=== PATIENT | female | born 1990 | race Caucasian/White ===

== ENCOUNTER 2019-07-01 19:15 | Outpatient (REF) | payer SELFPAY ==
[2019-07-01 20:27] LABS: Hepatitis B Surface AB. 3.5 (0-8.5)
[2019-07-05 11:39] LABS: Rubella IgG 8.84 1 (0.0-9.0)
== END 2019-07-01 19:16 | disposition home or self-care (01) ==
LOC: LAB 19:15
PROVIDERS: Family Provider Nurse Practitioner Family; PCP Nurse Practitioner Family
DX: Z23 Encounter for immunization (principal)
CPT/HCPCS: 86706; 86735; 86762; 86765; 86787

== ENCOUNTER → 2019-10-20 10:59 | Outpatient (BNVA) | payer MEDICAID, SELFPAY | PROVIDERS: Family Provider Nurse Practitioner Family; PCP Nurse Practitioner Family; Visit Provider Obstetrics & Gynecology | DX: Z34.90 Encounter for supervision of normal pregnancy, unspecified, unspecified trimester (principal) | CPT/HCPCS: 81025 ==

== ENCOUNTER → 2019-11-08 14:57 | Outpatient (BNVA) | payer MEDICAID, SELFPAY | PROVIDERS: Family Provider Nurse Practitioner Family; PCP Nurse Practitioner Family; Visit Provider Obstetrics & Gynecology | DX: Z34.01 Encounter for supervision of normal first pregnancy, first trimester (principal); Z12.4 Encounter for screening for malignant neoplasm of cervix | CPT/HCPCS: 80053; 80307; 84315; 85027; 86592; 86762; 86803; 86850; 86900; 87340; 87491; 87591; 87806; 88175 ==

== ENCOUNTER → 2020-03-01 13:02 | Outpatient (BNVA) | payer MEDICAID, SELFPAY | PROVIDERS: Family Provider Nurse Practitioner Family; PCP Nurse Practitioner Family; Visit Provider Obstetrics & Gynecology | DX: Z34.01 Encounter for supervision of normal first pregnancy, first trimester (principal) | CPT/HCPCS: 82950; 84315; 85027 ==

== ENCOUNTER → 2020-03-06 08:29 | Outpatient (BNVA) | payer MEDICAID, SELFPAY | PROVIDERS: Family Provider Nurse Practitioner Family; PCP Nurse Practitioner Family; Visit Provider Obstetrics & Gynecology | DX: R73.09 Other abnormal glucose (principal) | CPT/HCPCS: 82951; 82952 ==

== ENCOUNTER 2020-04-12 16:35 | Outpatient (CLI) | payer MEDICAID, SELFPAY ==
[2020-04-12 16:53] VITALS: TEMP 36.8; BMI 31.5
[2020-04-12 17:04] VITALS: BP 105/61; PULSE 79
[2020-04-12 17:17] VITALS: BP 105/61; PULSE 79; RESP 16; TEMP 36.8
--- NOTE | 2020-04-15 17:35 | PM.ACPR ---
NST (Non-Stress Test) NST : 1 Para: 0 Due date: 05/22/20 Gestational age (weeks): 34 Indications: Diet-controlled gestational diabetes in third trimester Test: NST Time: 16:49 Length of test in Minutes: 21 Contractions: None Fetus Fetus 1: Baseline FHR BMP:: 140 Variability: Moderate Accelerations: Present Decelerations: None Reacticity: Reactive Interpretation/Plan Interpretation by: Israel Cortez Comments: Reactive NST Time Out Is a Time Out required?: No
== END 2020-04-12 17:10 | disposition home or self-care (01) ==
LOC: OPOB 16:42 → OBGYN 04-13 10:24
PROVIDERS: PCP Registered Nurse; Visit Provider Obstetrics & Gynecology
DX: O24.419 Gestational diabetes mellitus in pregnancy, unspecified control (principal); Z3A.00 Weeks of gestation of pregnancy not specified
CPT/HCPCS: 12345; 59025; 84315; 99211

== ENCOUNTER 2020-04-19 11:15 | Outpatient (CLI) | payer MEDICAID, SELFPAY ==
[2020-04-19 11:32] VITALS: BP 112/68; PULSE 112
[2020-04-19 11:37] VITALS: RESP 16; TEMP 37.1; BMI 31.5
[2020-04-19 11:47] VITALS: BP 104/60; PULSE 82
[2020-04-19 12:02] VITALS: BP 103/73; PULSE 97
[2020-04-19 12:17] VITALS: BP 107/61; PULSE 92
--- NOTE | 2020-04-22 18:12 | PM.ACPR ---
NST (Non-Stress Test) NST : 1 Para: 0 Due date: 05/22/20 Gestational age (weeks): 35 Indications: Diet-controlled gestational diabetes in third trimester Test: NST Time: 11:32 Length of test in Minutes: 44 Contractions: Occasional Fetus Fetus 1: Baseline FHR BMP:: 140 Variability: Moderate Accelerations: Present Decelerations: None Reacticity: Reactive Interpretation/Plan Interpretation by: Israel Cortez Comments: Reactive NST Time Out Is a Time Out required?: No
== END 2020-04-19 15:38 | disposition home or self-care (01) ==
LOC: OPOB 11:20 → OBGYN 11:23
PROVIDERS: PCP Registered Nurse; Visit Provider Obstetrics & Gynecology
DX: O24.419 Gestational diabetes mellitus in pregnancy, unspecified control (principal); Z3A.00 Weeks of gestation of pregnancy not specified
CPT/HCPCS: 12345; 59025; 99211

== ENCOUNTER 2020-04-25 09:56 | Outpatient (CLI) | payer MEDICAID, SELFPAY ==
[2020-04-25 10:10] VITALS: PULSE 81; RESP 18; TEMP 36.6
[2020-04-25 10:38] VITALS: BMI 32.2
[2020-04-25 11:04] VITALS: RESP 18
--- NOTE | 2020-04-25 11:28 | PM.ACPR ---
Procedure/Consent Procedure Narrative: NONSTRESS TEST: Place of test: [facility]-L&D Indication: Gestational diabetic Date and time of test: 04/25/2020, 10:30 AM Baseline: 135 Variability: Moderate variability Accelerations: accelerations present Decelerations: No decelerations Tocometry: No contractions INTERPRETATION: NST reactive. Correlate with BPP., continue kick counts
== END 2020-04-25 11:04 | disposition home or self-care (01) ==
LOC: OPOB 10:04 → OBGYN 12:53
PROVIDERS: PCP Registered Nurse; Visit Provider Obstetrics & Gynecology
DX: O24.419 Gestational diabetes mellitus in pregnancy, unspecified control (principal); Z3A.00 Weeks of gestation of pregnancy not specified
CPT/HCPCS: 12345; 59025; 84315; 87081

== ENCOUNTER 2020-05-02 11:00 | Outpatient (CLI) | payer MEDICAID, SELFPAY ==
[2020-05-02 11:00] VITALS: BMI 32.2
[2020-05-02 11:17] VITALS: BP 118/68; PULSE 80; RESP 20; TEMP 36.8
== END 2020-05-02 11:46 | disposition home or self-care (01) ==
LOC: OPOB 11:07 → OBGYN 11:07
PROVIDERS: PCP Registered Nurse; Visit Provider Obstetrics & Gynecology
DX: O24.419 Gestational diabetes mellitus in pregnancy, unspecified control (principal); Z3A.00 Weeks of gestation of pregnancy not specified
CPT/HCPCS: 59025; 84315

== ENCOUNTER 2020-05-08 15:20 | Outpatient (CLI) | payer MEDICAID, SELFPAY ==
[2020-05-08 15:20] VITALS: BMI 32.5
[2020-05-08 15:31] VITALS: RESP 17; TEMP 37.1
[2020-05-08 15:44] VITALS: BP 116/65; PULSE 82
[2020-05-08 16:00] VITALS: BP 111/67; PULSE 83
[2020-05-08 16:14] VITALS: BP 114/66; PULSE 86
[2020-05-08 16:28] LABS: Actim Prom Negative
[2020-05-08 16:30] VITALS: BP 110/66; PULSE 84
[2020-05-08 16:36] VITALS: BP 110/66; PULSE 84
== END 2020-05-08 16:35 | disposition home or self-care (01) ==
LOC: OPOB 15:29 → OBGYN 05-09 08:01
PROVIDERS: PCP Registered Nurse; Visit Provider Obstetrics & Gynecology
DX: O24.419 Gestational diabetes mellitus in pregnancy, unspecified control (principal); O42.90 Premature rupture of membranes, unspecified as to length of time between rupture and onset of labor, unspecified weeks of gestation; Z3A.00 Weeks of gestation of pregnancy not specified
CPT/HCPCS: 59025; 83986; 84112; 84315; 99211

== ENCOUNTER 2020-05-16 12:55 | Outpatient (CLI) | payer MEDICAID, SELFPAY ==
[2020-05-16 13:11] VITALS: RESP 18; TEMP 36.8; BMI 32.4
[2020-05-16 13:26] VITALS: BP 119/66; PULSE 69
[2020-05-16 13:37] VITALS: BP 119/66; PULSE 69; RESP 18
--- NOTE | 2020-05-16 16:11 | P.PCN_ITS ---
Procedure/Consent Procedure Narrative: NONSTRESS TEST: Place of test: [facility] – [place]L&D Indication: Gestational diabetes- wellbeing as part of BPP Date and time of test: 05/16/2020-01:10 PM Baseline: 130 Variability: Moderate Accelerations: Present Decelerations: None Tocometry: No contractions INTERPRETATION: NST reactive, continue kick counts
[2020-05-18 14:44] LABS: Coronavirus Lab Test PTC Negative
== END 2020-05-16 13:40 | disposition home or self-care (01) ==
LOC: OPOB 13:01 → OBGYN 13:01
PROVIDERS: PCP Registered Nurse; Visit Provider Obstetrics & Gynecology
DX: O24.419 Gestational diabetes mellitus in pregnancy, unspecified control (principal); Z3A.00 Weeks of gestation of pregnancy not specified
CPT/HCPCS: 12345; 59025; 84315; 87635

== ENCOUNTER 2020-05-21 20:00 | Inpatient (IN) | payer MEDICAID, SELFPAY ==
[2020-05-21] VITALS (11 sets, daily range): BP systolic 0–119; BP diastolic 0–77; PULSE 72–97; RESP 16–17; TEMP 36.9; BMI 32.8
[2020-05-21 20:14] LABS: Basophils % 0.3 %; Eosinophils # 0.1 10^3/uL (0.0-0.8); Hemoglobin 12.9 g/dL (11.5-15.3); Lymphocytes # 2.6 10^3/uL (0.8-4.8); Lymphocytes % 26.1 %; Mean Corpuscular HGB Conc 33.1 g/dL (30.0-36.0); Mean Corpuscular Hemoglobin 31.3 pg (28.0-34.0); Mean Corpuscular Volume 94.7 fL (81-99); Mean Platelet Volume 12.5 fL (7.4-10.4); Monocytes # 0.8 10^3/uL (0.2-0.9); Monocytes % 8.1 %; Neutrophils # 6.34 10^3/uL (1.8-7.7); Nucleated Red Blood Cells % 0 %; Platelet Count 132 10^3/cmm (130-400); Red Blood Count 4.12 10^6/uL (4.1-5.3); Red Cell Distribution Width 12.7 % (12.1-15.1); White Blood Count 9.9 10^3/uL (4.0-10.0)
[2020-05-21] MEDS: dextrose 5%-sod chloride 0.9% 1,000 ML 125 ML IV (20:28)
[2020-05-21 20:50] LABS: Slide Review Slide Review Perform
[2020-05-21] MEDS: miSOPROStol 100 mcg tablet 25 MCG VAGINAL (21:00)
[2020-05-22] VITALS (125 sets, daily range): BP systolic 0–158; BP diastolic 0–102; PULSE 62–107; RESP 14–18; TEMP 36.3–37; O2SAT 95–100
[2020-05-22 00:16] LABS: Glucose Point of Care 74 mg/dL (70-110)
[2020-05-22 00:16] LABS: Glucose Point of Care 152 mg/dL (70-110)
[2020-05-22 03:00] LABS: Glucose Point of Care 98 mg/dL (70-110)
[2020-05-22] MEDS: dextrose 5%-sod chloride 0.9% 1,000 ML 125 ML IV ×2 (04:43→12:17)
[2020-05-22 04:56] LABS: Glucose Point of Care 100 mg/dL (70-110)
[2020-05-22] MEDS: oxytocin 30 UNIT/500 ML BAG IV (07:02)
[2020-05-22 09:12] LABS: Glucose Point of Care 96 mg/dL (70-110)
[2020-05-22] MEDS: fentaNYL 50 mcg/mL INJ 2mL IV (09:58)
[2020-05-22] MEDS: lactated ringers 1,000 ML 999 ML IV ×2 (10:08→11:12)
--- NOTE | 2020-05-22 11:39 | ANES.PROC ---
Anesthesia Procedures Procedure/Date: 05/22/20 Epidural: Time Out Performed: Yes Consents Signed: Procedure Consent Consent: from patient Lumbar Level: L3-L4 Epidural position: sitting Epidural procedure: sterile prep of area, 1% lidocaine to numb the area, 18 g needle, neg for paresthesia, test dose given, 1.5% xylocaine 1:200k epi, placed PCEA, no systemic response, sterile dressing applied and 0.2% Ropiavacaine @ mls/hr Additional Comments: KAREN at 5cm, catheter at 10cm.
[2020-05-22 12:33] LABS: Glucose Point of Care 82 mg/dL (70-110)
[2020-05-22] MEDS: alum-mag-hydroxide-sime 30 mL UDC PO (14:13)
[2020-05-22 14:35] LABS: Glucose Point of Care 115 mg/dL (70-110)
[2020-05-22 16:38] LABS: Glucose Point of Care 91 mg/dL (70-110)
[2020-05-22] MEDS: dextrose 5%-lactated ringers 1,000 ML 125 ML IV (16:40)
[2020-05-22 18:43] LABS: Glucose Point of Care 97 mg/dL (70-110)
--- NOTE | 2020-05-22 20:51 | PM.DELIVERY ---
Delivery Note: Date of delivery: May 22, 2020 - PRE-DELIVERY DIAGNOSIS: 29-year-old 1 para 0 at 39 weeks and 6 days Gestational [id number] on diet GBS negative Covid negative POST-DELIVERY DIAGNOSIS: 29-year-old 1 para 0 at 40 weeks and 0 days Vaginal delivery on 05/22/2020 PROCEDURE: Vaginal delivery on 05/22/2020 ANESTHESIA: Epidural anesthesia, local anesthesia with 2% lidocaine DELIVERING PHYSICIAN: Cindy Saba FACANA PAULA PRE-DELIVERY COURSE: Ms. Sood is a 29-year-old 1 para 0 at 39 weeks and 6 days who presented to labor and delivery on 05/21/2020 for scheduled induction of labor. Her course was complicated by gestational diabetes which is well controlled with diet alone. She had no new symptoms upon arrival to labor and delivery. On initial examination she was noted to be 2 cm, 70% and -2 station and had a category 1 tracing with no contractions. Induction was started with Cytotec that was placed at 9 PM. 4 hours later she was isabelle every 2 to 3 minutes and was uncomfortable and had made minimal cervical change to 3 cm 70% and -2 station. She was isabelle too frequently for another dose of Cytotec she was observed for the next 6 hours and made minimal cervical change. She was started on Pitocin at 7 AM on 05/22/2020 which was titrated to a maximum of 15 mIU and with that she started to grow more uncomfortable and became 4 cm at 10 AM. She was uncomfortable and an epidural was placed. tracing remained category 1 thus far. On examination at 12:05 PM she was noted to be 7 cm, 90% and -2 station and artificial rupture of membranes with clear fluid was done. She had some variable decelerations and early decelerations after this and Pitocin was turned off and tracing returned to category 1 at this time. She made slow cervical change after this and reached 9-1/2 cm at 4:30 PM and made no further cervical change. Contractions had spaced out to every 7 to 8 minutes. Pitocin was restarted and titrated to 12 international units and with this she was fully dilated at 6:35 PM. She was set up in lithotomy position ready to push. tracing throughout this time was category 1. DELIVERY NOTE: She was set up in lithotomy position and was pushing effectively. She was noted to be +3 station and continued pushing well. The head delivered in JB position, no nuchal cord was present. The shoulders and rest of the body followed with her next push. The baby's mouth and nose were suctioned and the baby was placed on the mother's belly. Once cord pulsations stopped the cord was clamped and cut. The placenta delivered spontaneously intact with membranes and was discarded. The fundus was noted to be firm and well contracted. The vagina and cervix were inspected and no cervical or sulcal lacerations were noted. First-degree perineal laceration was noted which was repaired. She had bilateral labial tears the larger on the right side that extended to the outer aspect of the labia minora. These 3 tears were repaired with 3-0 Vicryl in a continuous interlocking fashion and good hemostasis and reapproximation was achieved. Baby girl born at [facility] with 8/10, weighing 6 pounds 9 ounces, 2985 g, 20 inches long. Placenta was delivered spontaneously intact with membranes at 8:13 PM. Cotyledons were intact , centrally inserted umbilical cord with 3 vessels noted. Estimated blood loss 400 mL. Complications-none, both baby and mother were left to recovery in a stable condition. Coding Level of Care Code Acute City Controller for Chg Fwd History History History 1 Term 1 Miscarriages/Ectopic 0 0 Living Children 1 Other History: 1---> 05/22/2020----> induction for gestational hypertension at term, [place] Benitez [place] [facility] [place] Baby girl [facility] weighing 6 pounds 9 ounces, first-degree perineal tear and bilateral labial tears.
[2020-05-22] MEDS: lidocaine 2% INJ 20 mL INJECTION (21:01)
[2020-05-22] MEDS: ibuprofen 800 mg tablet PO (21:27)
[2020-05-23] VITALS (7 sets, daily range): BP systolic 112–128; BP diastolic 66–75; PULSE 86–102; RESP 16–17; TEMP 36.6–36.8; O2SAT 97–100
[2020-05-23] MEDS: ibuprofen 800 mg tablet PO ×3 (09:39→20:40)
[2020-05-23] MEDS: docusate sodium 100 mg Capsule PO (09:39)
[2020-05-23] MEDS: prenatal vitamin Capsule 1 CAP PO (09:39)
--- NOTE | 2020-05-23 11:05 | P.PN_ITS ---
Subjective Subjective: Interval history: SUBJECTIVE: Ms. Sood is doing well today. She states that the baby slept reasonably well overnight and so she is not as tired. She states that breast-feeding is going well. She does report some perineal soreness and she is using the sitz bath's. She states the pain is overall well controlled with pain medication. Is tolerating regular diet without nausea, vomiting, fever, chills, shortness of breath and chest pain. She is voiding freely. She has no other questions or concerns today OBJECTIVE/PHYSICAL EXAM: Gen.: No acute distress Heart: S1-S2 heard, regular rate and rhythm Lungs: Clear to auscultation bilaterally Abdomen: Soft, fundus firm below umbilicus, Legs: No calf tenderness, trace bilateral pitting pedal edema. ASSESSMENT AND PLAN: 29-year-old 1 para 1 status post vaginal delivery, day #1 -Continue routine care-encourage p.o. pain medication and ambulation - sitz baths and ice packs as needed for perineum -Anticipate discharge home tomorrow as long as she continues to do well given that she delivered rather late at night and patient is agreeable with this plan - consult Vitals/I&O/Wt Last Vital Signs Temp 98.3 F 05/23/20 09:30 Pulse 102 H 05/23/20 09:30 Resp 17 05/23/20 09:30 BP 112/66 05/23/20 09:30 Pulse Ox 98 05/23/20 06:09 05/22/20 05/23/20 05/23/20 22:59 06:59 14:59 Intake Total 580.917 / 3684.917 Output Total 1000 / 1000 1150 / 2150 Balance -419.083 / 2684.917 -1150 / 1534.917 Weight last 48 hrs Weight 185 lb Physical Exam Urinary Catheter Management^: [place]: Cath Placed During This Visit: yes, but has since been removed by the nurse Reason for Continuing Indwelling Catheter: Decision to DC Catheter Urinary Catheter Date of Insertion: 05/22/20 Urinary Catheter Time of Insertion: 11:25 Date Urinary Catheter Removed: 05/22/20 Time Urinary Catheter Discontinued: 19:06 Data : 05/23/20 11:55 Attestations Medical Necessity Statement*: Patient needs to stay to recover from delivery Coding Level of Care Code Acute Taximeter Repairer for Chg Fwd
[2020-05-23 12:33] LABS: Hemoglobin 10.8 g/dL (11.5-15.3); Mean Corpuscular HGB Conc 33.8 g/dL (30.0-36.0); Mean Corpuscular Hemoglobin 32.2 pg (28.0-34.0); Mean Corpuscular Volume 95.5 fL (81-99); Mean Platelet Volume 13.2 fL (7.4-10.4); Platelet Count 127 10^3/cmm (130-400); Red Blood Count 3.35 10^6/uL (4.1-5.3); Red Cell Distribution Width 13.1 % (12.1-15.1); White Blood Count 19.1 10^3/uL (4.0-10.0)
[2020-05-24 04:00] VITALS: BP 114/74; PULSE 85; RESP 16
--- NOTE | 2020-05-24 08:13 | PM.DCS ---
Discharge Providers Date of Admission: 05/21/20 20:00 Date of Discharge: May 24, 2020 Attending Provider at Admission: Cindy Morillo MD Attending Provider at Discharge: Cindy Morillo MD Primary Care Provider: DHAVAL Santos Reason for Visit Reason for Visit: IOL Hospital Course Hospital Course PRE-DELIVERY DIAGNOSIS: 29-year-old 1 para 0 at 39 weeks and 6 days Gestational phcftaik-[id number]-hgcpytbita on diet GBS negative Covid negative POST-DELIVERY DIAGNOSIS: 29-year-old 1 para 0 at 40 weeks and 0 days Vaginal delivery on 05/22/2020 PROCEDURE: Vaginal delivery on 05/22/2020 ANESTHESIA: Epidural anesthesia, local anesthesia with 2% lidocaine DELIVERING PHYSICIAN: Cindy Saba FACOG PRE-DELIVERY COURSE: Ms. Sood is a 29-year-old 1 para 0 at 39 weeks and 6 days who presented to labor and delivery on 05/21/2020 for scheduled induction of labor. Her course was complicated by gestational diabetes which is well controlled with diet alone. She had no new symptoms upon arrival to labor and delivery. On initial examination she was noted to be 2 cm, 70% and -2 station and had a category 1 tracing with no contractions. Induction was started with Cytotec that was placed at 9 PM. 4 hours later she was isabelle every 2 to 3 minutes and was uncomfortable and had made minimal cervical change to 3 cm 70% and -2 station. She was isabelle too frequently for another dose of Cytotec she was observed for the next 6 hours and made minimal cervical change. She was started on Pitocin at 7 AM on 05/22/2020 which was titrated to a maximum of 15 mIU and with that she started to grow more uncomfortable and became 4 cm at 10 AM. She was uncomfortable and an epidural was placed. tracing remained category 1 thus far. On examination at 12:05 PM she was noted to be 7 cm, 90% and -2 station and artificial rupture of membranes with clear fluid was done. She had some variable decelerations and early decelerations after this and Pitocin was turned off and tracing returned to category 1 at this time. She made slow cervical change after this and reached 9-1/2 cm at 4:30 PM and made no further cervical change. Contractions had spaced out to every 7 to 8 minutes. Pitocin was restarted and titrated to 12 international units and with this she was fully dilated at 6:35 PM. She was set up in lithotomy position ready to push. tracing throughout this time was category 1. DELIVERY NOTE: She was set up in lithotomy position and was pushing effectively. She was noted to be +3 station and continued pushing well. The head delivered in JB position, no nuchal cord was present. The shoulders and rest of the body followed with her next push. The baby's mouth and nose were suctioned and the baby was placed on the mother's belly. Once cord pulsations stopped the cord was clamped and cut. The placenta delivered spontaneously intact with membranes and was discarded. The fundus was noted to be firm and well contracted. The vagina and cervix were inspected and no cervical or sulcal lacerations were noted. First-degree perineal laceration was noted which was repaired. She had bilateral labial tears the larger on the right side that extended to the outer aspect of the labia minora. These 3 tears were repaired with 3-0 Vicryl in a continuous interlocking fashion and good hemostasis and reapproximation was achieved. Baby girl born at [facility] with 8/10, weighing 6 pounds 9 ounces, 2985 g, 20 inches long. Placenta was delivered spontaneously intact with membranes at 8:13 PM. Cotyledons were intact , centrally inserted umbilical cord with 3 vessels noted. Estimated blood loss 400 mL. Complications-none, both baby and mother were left to recovery in a stable condition. HOSPITAL COURSE: She underwent an uncomplicated vaginal delivery 05/22/2020 . She did well on day 0 and was ambulating well, tolerating regular diet, voiding freely, passing flatus. She was breast-feeding without difficulty and bonding well with her daughter. Pain was well-controlled with by mouth pain medication. She denied nausea, vomiting, fever, chills, shortness of breath, leg pain. She had moderate vaginal bleeding. On day # 1 she continued to do well with stable vital signs and stable hemoglobin at 10.8. She was discharged home on day 2 in a stable condition. Warning signs for endometritis, mastitis, DVT/PE were reviewed with her. Post delivery activity restrictions were also reviewed with her at all her questions were answered to her satisfaction. Plans on using natural methods for contraception but plans on adhering to abstinence for now EXAM AT DISCHARGE: Gen.: No acute distress Heart: S1-S2 heard, regular rate and rhythm Lungs: Clear to auscultation bilaterally Abdomen: Soft, fundus firm below umbilicus Legs: No calf tenderness, trace bilateral pitting pedal edema. CONDITION AT DISCHARGE: Stable Physical Exam Urinary Catheter Management^: [place]: Cath Placed During This Visit: yes, but has since been removed by the nurse Reason for Continuing Indwelling Catheter: Decision to DC Catheter Urinary Catheter Date of Insertion: 05/22/20 Urinary Catheter Time of Insertion: 11:25 Date Urinary Catheter Removed: 05/22/20 Time Urinary Catheter Discontinued: 19:06 Discharge Data Data Completed and Pending: Labs from last 24 hours 05/23/20 11:55 WBC 19.1 H RBC 3.35 L Hgb 10.8 L Hct 32.0 L MCV 95.5 MCH 32.2 MCHC 33.8 RDW 13.1 Plt Count 127 L MPV 13.2 H Vitals: Last Vital Signs Temp 98.1 F 05/23/20 22:00 Pulse 85 05/24/20 04:00 Resp 16 05/24/20 04:00 BP 114/74 05/24/20 04:00 Pulse Ox 97 05/23/20 22:00 Discharge Plan Discharge Patient Disposition: Home Condition: Stable Prescriptions: New ibuprofen 800 mg tablet 800 mg PO Q8H Qty: 30 RF: 0 hydrocodone-acetaminophen 5-325 mg tablet 1 tab PO Q6H Qty: 15 RF: 0 docusate sodium 100 mg Capsule 100 mg PO BID PRN (Reason: constipation) Qty: 30 RF: 0 Continued DHA 200 mg capsule PO RF: 0 acetaminophen [Tylenol Extra Strength] 500 mg tablet 1,000 mg PO Q6H PRNRF: 0 Zyrtec 10 mg capsule 10 mg PO DAILY RF: 0 Discontinued diphenhydramine HCl [Benadryl] 25 mg capsule 25 mg PO TID PRNRF: 0 Discharge Orders: Discharge Order (Routine); Ordered 05/24/20 Ordered By: Cindy Morillo Referrals: Cindy Morillo MD [Physician] - 06/28/20 8:00 am (Your appointment is with Dr. Saba on 06/28/2020 at 8:00am. Your will be doing your 2 hour glucose so please begin fasting after midnight) Discharge Diet: Usual diet Patient Instructions: Hydrocodone/Acetaminophen (By mouth), Ibuprofen (By mouth), Vitamins (By mouth), Laxative, Stimulant (By mouth), OB Discharge Report, OB Food/Drug Interaction Guide, OB Home Care, OB Proud Parent Packet, OB Vaginal Deliveries Activity Restrictions/Additional Instructions: Pelvic rest for 6 weeks, no heavy lifting for 6 weeks Discharge Attestations Time Spent in Discharge Care*: greater than 30 min Quality Metrics Clinical Quality Measures During this hospital stay, did patient experience: None Coding Level of Care Code Acute Clubhouse Manager for Kelle Santa
[2020-05-24] MEDS: prenatal vitamin Capsule 1 CAP PO (10:06)
[2020-05-24] MEDS: ibuprofen 800 mg tablet PO (10:07)
[2020-05-24] MEDS: docusate sodium 100 mg Capsule PO (10:07)
[2020-05-24 10:18] VITALS: BP 128/75; PULSE 95; RESP 16; TEMP 36.7; O2SAT 96
[2020-05-24 10:32] VITALS: BP 128/75; PULSE 95; RESP 16; TEMP 36.7; O2SAT 96
== END 2020-05-24 10:32 | disposition home or self-care (01) | DRG 807 ==
LOC: OPOB 20:01 → OBGYN 20:01
PROVIDERS: Admitting Provider Obstetrics & Gynecology; PCP Registered Nurse; Visit Provider Obstetrics & Gynecology
DX: O24.420 Gestational diabetes mellitus in childbirth, diet controlled (principal); Z37.0 Single live birth; Z3A.39 39 weeks gestation of pregnancy; O76 Abnormality in fetal heart rate and rhythm complicating labor and delivery; O70.0 First degree perineal laceration during delivery
CPT/HCPCS: 12345; 36415; 36416; 51702; 59409; 82962; 85025; 85027; 98960; J2795; J3010

== ENCOUNTER → 2020-06-28 08:50 | Outpatient (BNVA) | payer MEDICAID, SELFPAY | PROVIDERS: PCP Registered Nurse; Visit Provider Obstetrics & Gynecology | DX: O24.429 Gestational diabetes mellitus in childbirth, unspecified control (principal); Z30.9 Encounter for contraceptive management, unspecified | CPT/HCPCS: 82947 ==

== ENCOUNTER 2020-12-07 15:23 | Outpatient (CLI) | payer MEDICAID, SELFPAY ==
--- NOTE | 2020-12-07 15:30 | MM_ITS ---
WS: [id number] BILATERAL DIGITAL SCREENING MAMMOGRAPHY WITH CAD CLINICAL INFORMATION: Z12.31 - Encounter for screening mammogram for malignant ... HISTORY: Screening mammogram. No current complaints. COMPARISON: None. TECHNIQUE: Bilateral CC and MLO views. FINDINGS: Scattered fibroglandular densities bilaterally. No suspicious focal mass, asymmetry, calcifications, or architectural distortion. No evidence of malignancy. MM/[id number] IMPRESSION: BI-RADS: 1-Negative FOLLOW UP: 1 Year Follow-up Recommend return to annual screening mammography.
== END 2020-12-07 15:24 | disposition home or self-care (01) ==
LOC: RADSHAW 15:29
PROVIDERS: PCP Registered Nurse; Visit Provider Nurse Practitioner Family
DX: Z12.31 Encounter for screening mammogram for malignant neoplasm of breast (principal)
CPT/HCPCS: 77067

== ENCOUNTER → 2021-07-02 13:53 | Outpatient (BNVA) | payer MEDICAID, SELFPAY | PROVIDERS: PCP Registered Nurse; Visit Provider Obstetrics & Gynecology | DX: Z86.32 Personal history of gestational diabetes (principal) | CPT/HCPCS: 83036 ==

== ENCOUNTER 2021-12-26 14:08 | Outpatient (CLI) | payer MEDICAID, SELFPAY ==
--- NOTE | 2021-12-26 14:17 | MM_ITS ---
WS: [id number] BILATERAL 3D TOMOSYNTHESIS DIGITAL SCREENING MAMMOGRAPHY WITH CAD CLINICAL INFORMATION: SCREENING HISTORY: Screening mammogram. No current complaints. COMPARISON: December 07, 2020 TECHNIQUE: Bilateral CC and MLO views. FINDINGS: Scattered fibroglandular densities bilaterally. No suspicious focal mass, asymmetry, calcifications, or architectural distortion. No evidence of malignancy. MM/[id number] IMPRESSION: BI-RADS: 1-Negative FOLLOW UP: 1 Year Follow-up Recommend return to annual screening mammography.
== END 2021-12-26 14:09 | disposition home or self-care (01) ==
PROVIDERS: PCP Registered Nurse; Visit Provider Registered Nurse
DX: Z12.31 Encounter for screening mammogram for malignant neoplasm of breast (principal)
CPT/HCPCS: 77063; 77067

== ENCOUNTER → 2022-05-09 11:07 | Outpatient (BNVA) | payer MEDICAID, SELFPAY | PROVIDERS: PCP Registered Nurse; Visit Provider Nurse Practitioner Women's Health | DX: N93.9 Abnormal uterine and vaginal bleeding, unspecified (principal) | CPT/HCPCS: 76830 ==

== ENCOUNTER → 2022-05-13 12:15 | Outpatient (BNVA) | payer MEDICAID, SELFPAY | PROVIDERS: PCP Registered Nurse; Visit Provider Nurse Practitioner Women's Health | DX: N92.3 Ovulation bleeding (principal); R79.89 Other specified abnormal findings of blood chemistry | CPT/HCPCS: 84439; 84443 ==

== ENCOUNTER → 2022-05-21 10:33 | Outpatient (BNVA) | payer MEDICAID, SELFPAY | PROVIDERS: PCP Registered Nurse; Visit Provider Nurse Practitioner Women's Health | DX: R79.89 Other specified abnormal findings of blood chemistry (principal) | CPT/HCPCS: 84443 ==

== ENCOUNTER → 2022-06-21 15:24 | Outpatient (BNVA) | payer MEDICAID, SELFPAY | PROVIDERS: PCP Registered Nurse; Visit Provider Obstetrics & Gynecology | DX: R30.0 Dysuria (principal) | CPT/HCPCS: 81000 ==

== ENCOUNTER → 2022-07-02 09:40 | Outpatient (BNVA) | payer MEDICAID, SELFPAY | PROVIDERS: PCP Registered Nurse; Visit Provider Nurse Practitioner Women's Health | DX: Z34.90 Encounter for supervision of normal pregnancy, unspecified, unspecified trimester (principal); Z86.32 Personal history of gestational diabetes | CPT/HCPCS: 81025; 82950; 84315 ==

== ENCOUNTER → 2022-07-26 14:00 | Outpatient (BNVA) | payer MEDICAID, SELFPAY | PROVIDERS: PCP Registered Nurse; Visit Provider Obstetrics & Gynecology | DX: Z34.90 Encounter for supervision of normal pregnancy, unspecified, unspecified trimester (principal) | CPT/HCPCS: 80307; 84315; 84443; 85027; 86592; 86762; 86803; 86850; 86900; 87086; 87340; 87491; 87591; 87624; 87661; 87806 ==

== ENCOUNTER → 2022-09-12 13:26 | Outpatient (BNVA) | payer MEDICAID, SELFPAY | PROVIDERS: PCP Registered Nurse; Visit Provider Obstetrics & Gynecology | DX: Z34.90 Encounter for supervision of normal pregnancy, unspecified, unspecified trimester (principal) | CPT/HCPCS: 84315; 87086 ==

== ENCOUNTER → 2022-10-07 13:05 | Outpatient (BNVA) | payer MEDICAID, SELFPAY | PROVIDERS: PCP Registered Nurse; Visit Provider Nurse Practitioner Women's Health | DX: Z34.90 Encounter for supervision of normal pregnancy, unspecified, unspecified trimester (principal) | CPT/HCPCS: 81000 ==

== ENCOUNTER → 2022-11-06 13:45 | Outpatient (BNVA) | payer MEDICAID, SELFPAY | PROVIDERS: PCP Registered Nurse; Visit Provider Obstetrics & Gynecology | DX: Z34.90 Encounter for supervision of normal pregnancy, unspecified, unspecified trimester (principal) | CPT/HCPCS: 82950; 84315; 85025; 87086 ==

== ENCOUNTER → 2022-11-11 08:10 | Outpatient (BNVA) | payer MEDICAID, SELFPAY | PROVIDERS: PCP Registered Nurse; Visit Provider Obstetrics & Gynecology | DX: Z34.90 Encounter for supervision of normal pregnancy, unspecified, unspecified trimester (principal) | CPT/HCPCS: 82951; 82952 ==

== ENCOUNTER 2022-12-02 22:00 | Outpatient (CLI) | payer MEDICAID, SELFPAY ==
[2022-12-02 22:32] VITALS: BP 115/56; PULSE 76; RESP 16
[2022-12-02 22:41] VITALS: TEMP 36.6; TEMP 36.7
[2022-12-02 22:51] VITALS: BP 106/62; PULSE 79; RESP 14
[2022-12-02 22:52] VITALS: BMI 31.6
[2022-12-02 23:03] LABS: Add Urine Culture? No; Bacteria Urine 1+ /hpf; Bilirubin Urine Neg (Negative); Blood Urine Neg (Negative); Glucose Urine UA Norm (Normal); Ketones Urine Negative (Negative); Leukocyte Esterase Urine Negative (Negative); Mucus Urine 1+ /hpf; Nitrate Urine Negative (Negative); Protein Urine Neg (Negative); Urine Appearance Clear (CLEAR); Urine Color Light yellow (Yellow); Urobilinogen Urine Neg (Negative); WBC Urine 0-4 /hpf (0-5); pH Urine 5 (5-7)
[2022-12-02 23:21] VITALS: BP 101/55; PULSE 71
[2022-12-02 23:51] VITALS: BP 105/57; PULSE 69; RESP 16
[2022-12-03 00:21] VITALS: BP 107/59; PULSE 69; RESP 16
== END 2022-12-03 00:55 | disposition home or self-care (01) ==
LOC: OPOB 22:12 → OBGYN 22:13
PROVIDERS: PCP Registered Nurse; Visit Provider Obstetrics & Gynecology
DX: O26.899 Other specified pregnancy related conditions, unspecified trimester (principal); R10.9 Unspecified abdominal pain; Z3A.00 Weeks of gestation of pregnancy not specified; R10.2 Pelvic and perineal pain
CPT/HCPCS: 59025; 81001; 99211

== ENCOUNTER → 2022-12-19 14:50 | Outpatient (BNVA) | payer MEDICAID, SELFPAY | PROVIDERS: PCP Registered Nurse; Visit Provider Obstetrics & Gynecology | DX: Z34.90 Encounter for supervision of normal pregnancy, unspecified, unspecified trimester (principal) | CPT/HCPCS: 84315; 85025 ==

== ENCOUNTER → 2023-01-02 14:09 | Outpatient (BNVA) | payer MEDICAID, SELFPAY | PROVIDERS: PCP Registered Nurse; Visit Provider Obstetrics & Gynecology | DX: Z34.90 Encounter for supervision of normal pregnancy, unspecified, unspecified trimester (principal) | CPT/HCPCS: 84315; 87081; 87086 ==

== ENCOUNTER 2023-01-18 11:09 | Outpatient (CLI) | payer MEDICAID, SELFPAY ==
[2023-01-18 11:24] VITALS: RESP 16; BMI 32.5
[2023-01-18 11:39] VITALS: BP 112/68; PULSE 99
[2023-01-18 11:54] VITALS: BP 105/57; PULSE 93
[2023-01-18 11:57] LABS: Bilirubin Urine Neg (Negative); Blood Urine Neg (Negative); Glucose Urine UA Norm (Normal); Ketones Urine Negative (Negative); Leukocyte Esterase Urine 2+ (Negative); Nitrate Urine Negative (Negative); Protein Urine Neg (Negative); Specific Gravity, Urine 1.015 (1.005-1.030); Sulfosalicylic Acid Urine Negative (Negative); Urine Appearance Hazy (CLEAR); Urine Color Yellow (Yellow); Urobilinogen Urine Norm (Negative); pH Urine 8 (5-7)
[2023-01-18 11:59] LABS: Bacteria Urine 2+ /hpf; Mucus Urine 1+ /hpf
[2023-01-18 12:00] LABS: WBC Urine 15-25 /hpf (0-5)
[2023-01-18 12:01] LABS: Squamous Epithelial Cell Urine 15-25 /hpf (0-5)
[2023-01-18 12:02] LABS: Add Urine Culture? No
[2023-01-18 12:09] VITALS: BP 114/62; PULSE 82
== END 2023-01-18 12:32 | disposition home or self-care (01) ==
LOC: OPOB 11:18 → OBGYN 11:18
PROVIDERS: PCP Registered Nurse; Visit Provider Obstetrics & Gynecology
DX: O26.899 Other specified pregnancy related conditions, unspecified trimester (principal); R60.9 Edema, unspecified; Z3A.00 Weeks of gestation of pregnancy not specified
CPT/HCPCS: 59025; 81001; 83986; 99211

== ENCOUNTER 2023-01-22 23:41 | Inpatient (IN) | payer MEDICAID, SELFPAY ==
[2023-01-22 23:00] VITALS: BP 115/61; PULSE 75
--- NOTE | 2023-01-22 23:38 | PM.OPHPUD ---
Labor & Delivery H&P Update Date of Procedure: January 22, 2023 Date H&P Performed: 01/16/23 H&P update information: I have reviewed H&P completed within last 30 days, I have examined patient prior to procedure and No changes to prior documentation Changes to previous documentation: The patient is here for induction of labor at term. Admission Diagnosis: at 39w2d Related Problem List Diagnoses (1) History of gestational hypertension: (2) History of gestational diabetes: (3) Supervision of normal :
[2023-01-23] VITALS (47 sets, daily range): BP systolic 88–128; BP diastolic 51–71; PULSE 65–104; RESP 17–18; TEMP 36–36.6; O2SAT 93–99; BMI 32.9
[2023-01-23] MEDS: miSOPROStol 100 mcg tablet 25 MCG VAGINAL ×2 (01:05→05:02)
[2023-01-23 01:12] LABS: Basophils % 0.4 %; Eosinophils # 0.2 10^3/uL (0.0-0.8); Eosinophils % 1.3 %; Hematocrit 39.6 % (37.0-47.0); Hemoglobin 13.4 g/dL (11.5-15.3); Lymphocytes # 2.5 10^3/uL (0.8-4.8); Lymphocytes % 22.3 %; Mean Corpuscular HGB Conc 33.8 g/dL (30.0-36.0); Mean Corpuscular Hemoglobin 32.2 pg (28.0-34.0); Mean Corpuscular Volume 95.2 fl (81-99); Mean Platelet Volume 12.9 fL (7.4-10.4); Monocytes % 8.4 %; Neutrophils # 7.58 10^3/uL (1.8-7.7); Neutrophils % 66.6 %; Nucleated Red Blood Cells % 0 %; Platelet Count 152 10^3/cmm (130-400); Red Blood Count 4.16 10^6/uL (4.1-5.3); Red Cell Distribution Width 12.4 % (12.1-15.1); White Blood Count 11.4 10^3/uL (4.0-10.0)
[2023-01-23 01:13] LABS: Slide Review Slide Review Perform
[2023-01-23] MEDS: calcium carbonate 500 mg Chew Tablet 1000 MG PO (05:10)
[2023-01-23] MEDS: dextrose 5%-lactated ringers 1,000 ML 125 ML IV (11:03)
[2023-01-23] MEDS: ondansetron 2 mg/ML SDV 2 mL 4 MG IVP (13:29)
--- NOTE | 2023-01-23 13:40 | ANES.PREANE2 ---
Pre-Anesthetic Assessment Height/Weight: Height 1.6 m Weight 84.368 kg Temp Pulse Resp BP Pulse Ox O2 Del Method 97.9 F 70 17 106/58 98 Room Air 01/23/23 06:45 01/23/23 13:37 01/23/23 00:14 01/23/23 13:23 01/23/23 13:37 01/23/23 10:01 Familial anesthetic complications: none Was Beta Amy taken within 24 hours: N/A Was Clonidine taken within 24 hours: N/A Social No alcohol and No tobacco Exam alert, oriented x 3, clear to auscultation bilaterally and regular rate & rhythm Airway Submandibular: within normal limits Cervical ROM: within normal limits Mallampati: Class II Dentition: full Neuropsych Anxiety and Depression Anesthetic Plan ASA status: 2 Medications/Allergies Home Medications Medication Instructions Recorded Confirmed Last Taken Type prenat.vits,kimmy,oaq-fvpt-qqtas 1 tab PO DAILY 05/13/22 01/23/23 Unknown History loratadine 10 mg tablet (Claritin) 10 mg PO DAILY 06/21/22 01/23/23 Unknown History fluoxetine 20 mg capsule (Prozac) 20 mg PO DAILY #90 caps 07/11/22 01/23/23 Unknown Rx aspirin 81 mg tablet,delayed 81 mg PO DAILY 11/09/22 01/23/23 Unknown History release Allergies Allergy/AdvReac Type Severity Reaction Status Date / Time No Known Allergies Allergy Verified 01/16/23 16:04 Current Medications Generic Name Dose Route Start Last Admin Trade Name Freq PRN Reason Stop Dose Admin Calcium Carbonate 1,000 mg 01/23/23 00:12 01/23/23 05:10 Calcium Carbonate 500 Mg Chew Tablet PO 1,000 mg Q4H PRN Administration Heartburn/Indigestion (Use 1st) Dextrose/Lactated Ringer's 1,000 mls @ 125 mls/hr 01/23/23 00:15 01/23/23 11:03 Dextrose 5%-Lactated Ringers IV 125 mls/hr .Q8H MORGAN Administration Oxytocin 30 unit/ Sodium 503 mls @ 1 mls/hr 01/23/23 10:15 01/23/23 11:02 Chloride IV 1 mls/hr .Q24H MORGAN 1 mls/hr Administration Protocol Ondansetron HCl 4 mg 01/23/23 00:12 01/23/23 13:29 Ondansetron 2 Mg/Ml Sdv 2 Ml IVP 4 mg Q4H PRN Administration NAUSEA AND VOMITING PFSH Anesthesia Medical History Anxiety and depression Present prior to her in 2019 however got worse after delivery and is well controlled with Prozac. Does not have a therapist No pertinent past medical history Denies history of diabetes, asthma, seizures, DVT/PE, hypertension. PMD: PAULETTE Castro Surgical History History of tonsillectomy as a child-2-3 years old. No complications. Family History Mother Diabetes Breast cancer Dx'd in her 40's Grandmother Diabetes Maternal great grandmother Stroke Maternal grandmother Maternal great grandmother Family/Other Breast cancer Maternal aunts x 2, ages at diagnosis unknown Grandfather Colon cancer Maternal grandfather; age at diagnosis unknown Denies family history of Ovarian cancer Heart disease Hyperlipidemia Family history of thyroid problem Hypertension Uterine cancer Thyroid condition Social History Substance/Drug Use: never Female Reproductive History : 2 Data Anesthesia 01/23/23 00:42 Short CBC 01/23/23 Range/Units 00:42 WBC 11.4 H (4.0-10.0) 10^3/uL Hgb 13.4 (11.5-15.3) g/dL Hct 39.6 (37.0-47.0) % MCV 95.2 (81-99) fl Plt Count 152 (130-400) 10^3/cmm Neut % (Auto) 66.6 % Neut # (Auto) 7.58 (1.8-7.7) 10^3/uL Cardiac Studies: No Data to Display Anesthesia Procedures Epidural Time Out Performed: Yes Consents Signed: Procedure Consent Consent: requested by attending/covering physician, from patient, risks and benefits reviewed and patient agrees to proceed Lumbar Level: L3-L4 Epidural position: sitting Epidural procedure: sterile prep of area, 1% lidocaine to numb the area, 18 g needle, neg for paresthesia, test dose given, 1.5% xylocaine 1:200k epi, 0.2% Ropivacaine bolus ml (5mls), placed PCEA, no systemic response, sterile dressing applied and 0.2% Ropiavacaine @ mls/hr (10) Additional Comments: KAREN at 4cm, cath at 9cm
--- NOTE | 2023-01-23 15:40 | PM.DELIVERY ---
Delivery Note: Date of delivery: January 23, 2023 Pre-delivery diagnoses: iup@39w3d Post-delivery diagnoses: same-delivered Procedure: Delivering Physician: Roxann Estimated blood loss (mL): 20 Findings: term female in the JB presentation Pre-Delivery Course: The patient was admitted for induction at term. She received two doses of cytotec and began to contract. She had pitocin started when the contractions spaced out. She received an epidural for pain management. She had complete cervical dilation and AROM with clear fluid was produced. Delivery: The patient had complete cervical dilation and began to push. The head delivered in the JB position over an intact perineum under epidural anesthesia. The nose and mouth were bulb suctioned. The shoulders and body delivered atraumatically. The baby was placed onto the mother's abdomen. The cord was clamped and cut. Cord blood was obtained. The placenta delivered spontaneously. It was inspected and found to be intact. Inspection of the perineum revealed a second-degree midline laceration which was repaired in the usual fashion.. Estimated blood loss 20 mL. Apgars on baby were 8 at 1 minute and 9 at 5 minutes. Weight of baby is 6 pounds 13 ounces. Mother and baby were stable post delivery. History History History 2 Term 1 0 Miscarriages/Ectopic 0 Living Children 1 Coding Level of Care Code Acute Code for Chg Fwd Diagnoses
[2023-01-23] MEDS: acetaminophen 325 mg Tablet 650 MG PO (17:32)
[2023-01-23] MEDS: docusate sodium 100 mg Capsule PO (20:15)
[2023-01-23] MEDS: ibuprofen 800 mg tablet PO (20:15)
[2023-01-23] MEDS: HYDROcodone-acetaminophen 5-325 mg Tablet PO (22:21)
[2023-01-24] VITALS (8 sets, daily range): BP systolic 97–112; BP diastolic 62–78; PULSE 70–102; RESP 15–16; TEMP 36.7; O2SAT 96–99
[2023-01-24 03:15] LABS: Hematocrit 34.1 % (37.0-47.0); Hemoglobin 11.3 g/dL (11.5-15.3); Mean Corpuscular HGB Conc 33.1 g/dL (30.0-36.0); Mean Corpuscular Hemoglobin 32.2 pg (28.0-34.0); Mean Corpuscular Volume 97.2 fl (81-99); Mean Platelet Volume 12.5 fL (7.4-10.4); Platelet Count 131 10^3/cmm (130-400); Red Blood Count 3.51 10^6/uL (4.1-5.3); Red Cell Distribution Width 12.3 % (12.1-15.1); White Blood Count 14.2 10^3/uL (4.0-10.0)
[2023-01-24] MEDS: lactated ringers 1,000 ML 999 ML IV (07:39)
[2023-01-24] MEDS: citric acid-sodium citrate 30 mL UDC PO (07:39)
[2023-01-24] MEDS: ceFAZolin 2,000 MG in sodium chloride 0.9% (plus) 50 ML 100 MG IV (07:39)
[2023-01-24] MEDS: famotidine 20 mg/2 mL INJ IVP (07:43)
[2023-01-24] MEDS: metoclopramide 5 mg/mL SDV 2 mL 10 MG IVP (07:43)
--- NOTE | 2023-01-24 07:43 | ANES.PAUD2 ---
Pre-Anesthetic Update Pre-Anesthetic Assessment: Date of Surgery/Procedure: 01/24/23 Proposed Procedure: Operation Date: 01/24/23 08:10 Proposed Procedures p Post Bilateral Tubal Ligation(Bilateral) - Doris Hackett MD Changes from Pre-Anesthetic Assessment: post delivery 1445 01/23/23 uncomplicated delivery. Last Intake: NPO since MN Labs Last 48hrs: Short CBC 01/23/23 01/24/23 Range/Units 00:42 03:05 WBC 11.4 H 14.2 H (4.0-10.0) 10^3/ uL Hgb 13.4 11.3 L (11.5-15.3) g/dL Hct 39.6 34.1 L (37.0-47.0) % MCV 95.2 97.2 (81-99) fl Plt Count 152 131 (130-400) 10^3/c mm Neut % (Auto) 66.6 % Neut # (Auto) 7.58 (1.8-7.7) 10^3/u L Vitals: Temperature 98.1 F 01/24/23 04:00 Temperature Source Oral 01/24/23 04:00 Pulse Rate 70 01/24/23 04:00 Respiratory Rate 16 01/24/23 04:00 Respiratory Effort Spontaneous, Non- Labored 01/23/23 01:10 Respiratory Depth Normal 01/23/23 01:10 Respiratory Patter n Normal 01/23/23 01:10 Blood Pressure 108/67 01/24/23 04:00 Blood Pressure Aixa n 80 01/24/23 04:00 Blood Pressure Pos ition Semi Fowlers 01/24/23 04:00 Pulse Oximetry 97 01/24/23 04:00 Oxygen Delivery Me thod Room Air 01/24/23 04:00 Cardiac Studies: No Data to Display
--- NOTE | 2023-01-24 08:57 | ANE.PACU2 ---
Inpatient post-anesthesia follow up: Airway intact: Yes Vital signs: Temperature 98.1 F Pulse Rate 70 Respiratory Rate 16 Blood Pressure 108/67 Pulse Oximetry 97 Oxygen Delivery Me thod Room Air Oxygen Flow Rate Fraction of Inspir ed Oxygen Hydration adequate: Yes Nausea and vomiting: No Pain level: 2 Mental status: Baseline Additional Comments: Post epidural.
--- NOTE | 2023-01-24 09:45 | PM.OP ---
Operative Report Date of procedure: January 24, 2023 Pre-op diagnosis: sterilization consults Post-op diagnosis: same-sterilized Post-op findings: normal appearing uterus, tubes and ovaries Procedure done: bilateral partial salpingectomy Specimens removed/disposition: right segment of tube, left partial segment of tube, including fimbria to pathology Surgeon: Doris Hackett Anesthesia: Other (spinal) Estimated blood loss (mL): 5 IV fluids (mL): 1,100 Complications: scarring of the umbilical fascia due to previous piercings Condition: stable Disposition: PACU Procedure: Informed consent was obtained and the patient was taken to the operating room where spinal anesthesia was administered and found to be adequate. She was prepped and draped in the normal sterile fashion and placed in the dorsal supine position. Using Allis clamps the skin under the umbilicus was tented up and an incision was made. It was carried down to the underlying layer of fascia. The fascia was incised in the midline and extended laterally. The peritoneum was entered sharply with a Azul clamp. The patient was placed in Trendelenburg and tilted to the left. The right fallopian tube was grasped with a bre clamp. The tube was elevated and brought through the incision. A window was made in the mesosalpinx and the tube was doubly ligated. Using the Metzenbaum scissors a 2 cm piece was removed. The stumps were sitting very close to 1 another so I used a piece of 4-0 Monocryl and sewed the inferior stump to the fimbria. There was excellent hemostasis and the tubes were no longer seated next to each other. The tube was returned to the abdomen. Attention was then turned to the right side where the patient was tilted to the right. The left tube was grasped with a [place] clamp and brought through the incision. There was no good window, so I ligated the end of the tube including the fimbria. This was doubly ligated and cut. There was excellent hemostasis post removal. The tube was returned to the abdomen. The fascia was repaired with 0 Vicryl in a running fashion. The skin was closed with 4-0 Monocryl. There was 10 mL of quarter percent Marcaine injected around the incision. The patient tolerated the procedure well. Sponge lap and needle counts were correct x3. She was taken to the recovery room in stable condition.
[2023-01-24] MEDS: HYDROcodone-acetaminophen 5-325 mg Tablet PO (11:51)
--- NOTE | 2023-01-24 13:54 | P.DS_ITS ---
Discharge Providers Date of Admission: 01/22/23 23:41 Date of Discharge: January 24, 2023 Attending Provider at Admission: Doris Hackett MD Attending Provider at Discharge: Doris Hackett MD Primary Care Provider: DHAVAL Santos Diagnoses at Discharge Discharge Diagnosis (1) History of gestational hypertension: Status: Acute (2) History of gestational diabetes: Status: Acute (3) Supervision of normal : Status: Resolved Qualifiers: Normal : normal first Trimester: third trimester Qualified Code(s): Z34.03 - Encounter for supervision of normal first , third trimester Reason for Visit Reason for Visit: induction Hospital Course Hospital Course The patient was admitted for induction at term. She had spontaneous delivery of a term female . She did well and on the morning of PP day #1, she received a partial salpingectomy. She requested discharge in the afternoon. Physical Exam Narrative: The patient has no concerns today Const: COMMON NORMALS: no acute distress, patient oriented x3, no limitations, healthy appearing, alert and well nourished GENERAL APPEARANCE: cooperative, comfortable, well kempt and well developed ORIENTATION/CONSCIOUSNESS: Yes awake, Yes oriented to person, Yes oriented to place and Yes oriented to time Resp: COMMON NORMALS: normal respiratory effort EFFORT & INSPECTION: Yes able to speak in complete sentences GI: COMMON NORMALS: Soft to palpation and non-tender PALPATION: Yes Soft to palpation Extremity: COMMON NORMALS: no calf tenderness Neuro: COMMON NORMALS: patient oriented x3 SENSORIUM/ORIENTATION: Yes alert, Yes oriented to person, Yes oriented to place and Yes oriented to time Psych: COMMON NORMALS: mental status grossly normal, Normal thought process present, cooperative, normal affect and speech normal APPEARANCE: Yes well kempt SPEECH: Yes normal speech THOUGHT PROCESS: Normal thought process present Urinary Catheter Management: [place]: Cath Placed During This Visit: yes, but has since been removed by the nurse Reason for Continuing Indwelling Catheter: Decision to DC Catheter Urinary Catheter Date of Insertion: 01/23/23 Urinary Catheter Time of Insertion: 13:50 Date Urinary Catheter Removed: 01/23/23 Time Urinary Catheter Discontinued: 14:11 Discharge Data Studies Completed and Pending Laboratory Results WBC 14.2 10^3/uL (4.0-10.0) H 01/24/23 03:05 RBC 3.51 10^6/uL (4.1-5.3) L 01/24/23 03:05 Hgb 11.3 g/dL (11.5-15.3) L 01/24/23 03:05 Hct 34.1 % (37.0-47.0) L 01/24/23 03:05 MCV 97.2 fl (81-99) 01/24/23 03:05 MCH 32.2 pg (28.0-34.0) 01/24/23 03:05 MCHC 33.1 g/dL (30.0-36.0) 01/24/23 03:05 RDW 12.3 % (12.1-15.1) 01/24/23 03:05 Plt Count 131 10^3/cmm (130-400) 01/24/23 03:05 MPV 12.5 fL (7.4-10.4) H 01/24/23 03:05 Neut % (Auto) 66.6 % 01/23/23 00:42 Lymph % (Auto) 22.3 % 01/23/23 00:42 [place] % (Auto) 8.4 % 01/23/23 00:42 Eos % (Auto) 1.3 % 01/23/23 00:42 Baso % (Auto) 0.4 % 01/23/23 00:42 Neut # (Auto) 7.58 10^3/uL (1.8-7.7) 01/23/23 00:42 Lymph # (Auto) 2.5 10^3/uL (0.8-4.8) 01/23/23 00:42 [place] # (Auto) 1.0 10^3/uL (0.2-0.9) H 01/23/23 00:42 Eos # (Auto) 0.2 10^3/uL (0.0-0.8) 01/23/23 00:42 Baso # (Auto) 0.0 10^3/uL (0.0-0.1) 01/23/23 00:42 Nucleated RBC % (auto) 0 % 01/23/23 00:42 Nucleated RBCs # 0.0 /100WBC 01/23/23 00:42 Vitals Last Vital Signs Temp 98.1 F 01/24/23 04:00 Pulse 70 01/24/23 04:00 Resp 16 01/24/23 04:00 BP 108/67 01/24/23 04:00 Pulse Ox 97 01/24/23 04:00 O2 Del Method Room Air 01/24/23 04:00 Discharge Plan Discharge Patient Disposition: Home Condition: Stable Prescriptions: New hydrocodone-acetaminophen 5-325 mg Tablet 1 tab PO Q4H PRN (Reason: Moderate To Severe Pain) Qty: 15 0RF docusate sodium 100 mg Capsule 100 mg PO BID Qty: 60 0RF Continued prenat.vits,kimmy,pnl-xuqd-ejckd Tablet 1 tab PO DAILY loratadine [Claritin] 10 mg tablet 10 mg PO DAILY aspirin 81 mg tablet,delayed release (DR/EC) 81 mg PO DAILY fluoxetine [Prozac] 20 mg capsule 20 mg PO DAILY Qty: 90 5RF Discharge Orders: Discharge Order (Routine); Ordered 01/24/23 Ordered By: Drois Hackett Patient Instructions: Opioid Safety Discharge Attestations Time Spent in Discharge Care*: less than 30 min Quality Metrics Clinical Quality Measures [ No reported AMI, CVA or VTE this stay] Coding Level of Care Code Acute Code for Chg Fwd Diagnoses History of gestational hypertension Z87.59 History of gestational diabetes Z86.32 Supervision of normal Z34.03 Normal : normal first Trimester: third trimester
[2023-01-24] MEDS: ibuprofen 800 mg tablet PO (15:19)
== END 2023-01-24 17:30 | disposition home or self-care (01) | DRG 798 ==
LOC: OPOB 23:41 → OBGYN 23:41
PROVIDERS: Admitting Provider Obstetrics & Gynecology; PCP Registered Nurse; Visit Provider Obstetrics & Gynecology
PROC: 0UB70ZZ Excision of Bilateral Fallopian Tubes, Open Approach (ICD-10-PCS; CPT 58605; principal; 2023-01-24 08:00)
DX: O99.344 Other mental disorders complicating childbirth (principal); Z37.0 Single live birth; F41.9 Anxiety disorder, unspecified; F32.A Depression, unspecified; Z86.32 Personal history of gestational diabetes; Z3A.39 39 weeks gestation of pregnancy; O70.1 Second degree perineal laceration during delivery; Z87.59 Personal history of other complications of pregnancy, childbirth and the puerperium; Z30.2 Encounter for sterilization
CPT/HCPCS: 36415; 51702; 58605; 59025; 59409; 85025; 85027; 88302; 96374; 99211; J0690; J2371; J2405; J2704; J2765; J2795; J3010; J3490; J7040; J7120; J7121

== ENCOUNTER 2023-03-07 11:16 | Outpatient (CLI) | payer MEDICAID, SELFPAY ==
--- NOTE | 2023-03-07 11:23 | MM_ITS ---
WS: [id number] BILATERAL SCREENING DIGITAL TOMOSYNTHESIS MAMMOGRAM WITH CAD HISTORY: SCREENING COMPARISON: 12/26/2021 and 12/07/2020 Bilateral CC and MLO views with tomosynthesis and synthetic mammography submitted. Computer aided det ection analyzed. Breast composition: The breasts are heterogeneously dense, which may obscure small masses. No suspici ous masses, microcalcifications or architectural distortion. IMPRESSION: MM/[place] [address] BI-RADS: 1-Negative FOLLOW UP: 1 Year Follow-up
== END 2023-03-07 11:17 | disposition home or self-care (01) ==
LOC: MOBLMAM 11:23
PROVIDERS: PCP Registered Nurse; Visit Provider Registered Nurse
DX: Z12.31 Encounter for screening mammogram for malignant neoplasm of breast (principal)
CPT/HCPCS: 77063; 77067

== ENCOUNTER → 2023-09-04 09:00 | Outpatient (BNVA) | payer MEDICAID, SELFPAY | PROVIDERS: PCP Registered Nurse; Visit Provider Registered Nurse | DX: Z20.828 Contact with and (suspected) exposure to other viral communicable diseases (principal); B34.8 Other viral infections of unspecified site | CPT/HCPCS: 87400 ==

== ENCOUNTER 2024-03-31 13:43 | Outpatient (CLI) | payer MEDICAID, SELFPAY ==
--- NOTE | 2024-03-31 13:40 | MM_ITS ---
WS: [id number] BILATERAL 3D TOMOSYNTHESIS DIGITAL SCREENING MAMMOGRAPHY WITH CAD CLINICAL INFORMATION: SCREENING HISTORY: Screening mammogram. No current complaints. COMPARISON: 2022 TECHNIQUE: Bilateral CC and MLO views. FINDINGS: Scattered fibroglandular densities bilaterally. No suspicious focal mass, asymmetry, calcifications, or architectural distortion. No evidence of malignancy. MM/MM scr BI tomosynthesis [id number] IMPRESSION: DENSITY: There are scattered areas of fibroglandular density. BI-RADS: 1 - Negative. FOLLOW UP: 1 Year Follow-up Recommend return to annual screening mammography.
== END 2024-03-31 13:44 | disposition home or self-care (01) ==
LOC: MOBLMAM 13:46
PROVIDERS: PCP Registered Nurse; Visit Provider Registered Nurse
DX: Z12.31 Encounter for screening mammogram for malignant neoplasm of breast (principal)
CPT/HCPCS: 77063; 77067

== ENCOUNTER 2024-08-11 06:52 | Day surgery (SDC) | payer MEDICAID, SELFPAY ==
[2024-08-11] VITALS (9 sets, daily range): BP systolic 111–138; BP diastolic 68–77; PULSE 73–95; RESP 16–18; TEMP 36.1–36.5; O2SAT 94–98; BMI 31.8
--- NOTE | 2024-08-11 | XR_ITS ---
WS: [id number] Exam: XR tibia fibula LT 2V [id number] Date/Time of Exam: 08/11/2024 12:00 AM Reason For Exam: JOCELYN PICS There is plate and screw fixation involving a fracture of the lower fibula. Alignment is anatomic for healing.
[2024-08-11] MEDS: sodium chloride 0.9% 1,000 ML 30 ML IV (07:29)
[2024-08-11] MEDS: CELEcoxib 200 mg Capsule 400 MG PO (07:30)
[2024-08-11] MEDS: gabapentin 300 mg Capsule PO (07:33)
[2024-08-11 07:45] LABS: HCG, Serum Qual Negative (Negative)
--- NOTE | 2024-08-11 07:50 | P.HPUD_ITS ---
Surgery/Procedure H&P Update DATE OF PROCEDURE: August 11, 2024 DATE H&P PERFORMED: 08/04/23 H&P UPDATE INFORMATION: I have reviewed H&P completed within last 30 days, I have examined patient prior to procedure, No changes to prior documentation and H&P is in [facility] [place] EMR on date indicated PREOP DIAGNOSIS: Left fibula fracture PLANNED PROCEDURE: Operation Date: 08/11/24 08:30 Proposed Procedures p ORIF Ankle ORIF Distal Fibula(Left) - Maurice Whiteside DPM
--- NOTE | 2024-08-11 08:05 | SUR.PREOP ---
popiteal block performed in OPS by dr weston using 30ml .5% ropivicaine. patient tolerated well
--- NOTE | 2024-08-11 08:06 | ANES.PREANE2 ---
Pre-Anesthetic Assessment Height/Weight: Height 5 ft 3 in Weight 180 lb Temp Pulse Resp BP Pulse Ox O2 Del Method 97.7 F 74 18 133/76 97 Room Air 08/11/24 07:05 08/11/24 07:05 08/11/24 07:05 08/11/24 07:05 08/11/24 07:05 08/11/24 07:07 Preop Diagnosis: Left fibula fracture Operation Date: 08/11/24 08:30 Proposed Procedures p ORIF Ankle ORIF Distal Fibula(Left) - DAVID CerratoM Was Beta Amy taken within 24 hours: N/A Was Clonidine taken within 24 hours: N/A Last intake: Intake Last Liquid Date 08/10/24 Last Liquid Time 23:59 Last Solid Date 08/10/24 Last Solid Time 22:30 Social No alcohol and No tobacco Exam alert, oriented x 3, clear to auscultation bilaterally and regular rate & rhythm Airway Submandibular: within normal limits Cervical ROM: within normal limits Mallampati: Class II Dentition: full Anesthetic Plan ASA status: 2 Anesthesia: General and Regional (specify below) Other: No prior issues with anesthesia NPO since yesterday evening Patient vapes nicotine Denies any cardiac issues test negative METs greater than 4 Plan for general anesthesia with preop nerve block Medications/Allergies Home Medications ?Medication ?Instructions ?Recorded ?Confirmed ?Last Taken ?Type loratadine 10 mg tablet (Claritin) 10 mg PO DAILY 06/21/22 08/10/24 08/10/24 History (28) 1.5 mg-30 mcg 1 tab PO DAILY 90 days #84 tabs 01/30/24 08/10/24 08/10/24 Rx (21)/75 mg (7) tablet (norethindrone-e.estradiol-iron) fluoxetine 40 mg capsule 40 mg PO DAILY 90 days #90 caps 01/30/24 08/10/24 08/10/24 Rx CAM walker #1 ea 08/04/24 08/04/24 Unknown Rx Allergies Allergy/AdvReac Type Severity Reaction Status Date / Time No Known Allergies Allergy Verified 08/11/24 07:02 Current Medications Generic Name Dose Route Start Last Admin Trade Name Freq PRN Reason Stop Dose Admin Sodium Chloride 1,000 mls @ 30 mls/hr 08/11/24 07:00 02/19/25 07:29 Sodium Chloride 0.9% IV 08/12/24 06:59 30 mls/hr .Q24H MORGAN Administration PFSH Anesthesia Medical History Anxiety and depression No pertinent past medical history Denies history of diabetes, asthma, seizures, DVT/PE, hypertension. PMD: PAULETTE Castro Surgical History History of tonsillectomy as a child-2-3 years old. No complications. Family History Mother Diabetes Breast cancer Dx'd in her 40's Grandmother Diabetes Maternal great grandmother Stroke Maternal grandmother Maternal great grandmother Family/Other Breast cancer Maternal aunts x 2, ages at diagnosis unknown Grandfather Colon cancer Maternal grandfather; age at diagnosis unknown Denies family history of Ovarian cancer Heart disease Hyperlipidemia Family history of thyroid problem Hypertension Uterine cancer Thyroid disease Social History Smoking and tobacco/nicotine status: never used tobacco/nicotine Data Anesthesia Cardiac Studies: No Data to Display
--- NOTE | 2024-08-11 08:07 | ANES.PROC ---
Anesthesia Procedures Procedure/Date: 08/11/24 Nerve Block ^: Nerve Block 1: Main Anesthesia: general anesthesia Time Out Performed: Yes Consent: requested by attending/covering physician and from patient Nerve block location: popliteal Anesthesia monitors applied: pulse oximetry, EKG, BP cuff and oxygen Nerve block position: supine Anesthetic Used: ropivicaine 0.5% Amount of anesthesia used (mL): 30 Ultrasound used to: recognize landmarks Nerve Stimulator Used?: Yes Interscalene/Femoral BLK: other needle (pjunk 4 inch) Injection: neg aspiration of heme Patient Tolerated Procedure: well Complications: none Additional Comments: Decadron 4 mg added to block
[2024-08-11] MEDS: ceFAZolin 2,000 mg SDV 2000 MG IVP (08:20)
--- NOTE | 2024-08-11 09:18 | P.BOP_ITS ---
Date of Procedure: 09/05/23 Surgeon: Maurice Whiteside DPM Finance Effectiveness Manager(s): Dawn Procedure(s) performed: Open reduction internal fixation left distal fibula none Findings of the procedure(s): None Estimated blood loss: 2 mL Specimen(s) removed: No specimens Post-operative diagnosis: Left distal fibula fracture
--- NOTE | 2024-08-11 09:19 | P.OP_ITS ---
Operative Report Date of procedure: August 11, 2024 Pre-op diagnosis: Closed fracture of distal end of left fibula, initial encounter S82.832A Post-op diagnosis: Closed fracture of distal end of left fibula, initial encounter S82.832A Post-op findings: None Procedure done: Open reduction internal fixation left distal fibula. CPT code 40820 Implants: [place] anatomic fibular plate 11 hole [place] 3 mm screw short thread. X 2 3.5 mm locking screws 2-0 Vicryl 3-0 Vicryl Skin joie Specimens removed/disposition: No specimens Pathology: No pathology Surgeon: Maurice Whiteside DPM [employer]eron[employer] Sales Engineer: Dawn Estimated blood loss: 2 43 minutes IV fluids: See intraoperative documentations Complications: No complications Brief History: 33 year old female patient here for evaluation of her left distal fibular fracture. DOI: 08/02/24. X-ray shows long oblique Sigifredo King B fracture of the left fibula, discussed long fracture with greater than 2 mm of displacement on the lateral view and some shortening. Discussed surgical versus conservative management, after discussing risks and benefits of each she would like to proceed with surgical intervention due to needing to return to work and does not want to risk conservative management and then needing surgery 6 or [address] should it have a delay in healing or displace. I reviewed at length with the patient, the risks, potential complications, benefits, alternatives, expectations, and typical outcomes associated with the surgery. The risks and potential complications were explained in detail, including but not limited to infection, wound dehiscence or soft tissue complications, bleeding and hematoma, chronic edema, neuritis or nerve damage producing numbness or chronic pain, CRPS, failure to relieve pain or worsening pain, thick / painful / unsightly scar, limited motion / stiffness, malposition, delayed union, malunion, or nonunion, fracture, reaction to implants, anesthetic complications, venous thromboembolism, and deformity recurrence. I discussed the notion of no regrets with the patient as it pertains to complications and outcomes. The patient seemed to understand the nature of the proposed care and required convalescence. They asked appropriate questions, answered to their satisfaction. They are aware no guarantees can be made as to a satisfactory outcome and they understand there may be other possible unforeseen complications or outcomes not listed here that will be treated accordingly if they arise. There were no written or implied guarantees given to the patient. They gave informed consent to proceed. Procedure: Under mild sedation the patient was brought to the operating room and remained on the gurney in supine position. A timeout was performed. Anesthesia was then administered by the anesthesia service. Left popliteal block performed per anesthesia preoperatively. Well-padded pneumatic tourniquet applied to the left high calf. Left lower extremity was scrubbed, prepped and draped utilizing normal aseptic technique. Left foot and ankle were then exanguinated with Esmarch bandage and tourniquet inflated to 250 mmHg. Attention was directed to the distal lateral left ankle where over the lateral malleolus and linear longitudinal incision was made through skin with a #15 blade carried proximally approximately 15 cm. Dissection was carried down through subcutaneous tissue to the layer periosteum utilizing sharp and blunt technique. Care was taken to retract and preserve neurovascular and tendinous structures. All bleeders were ligated and cauterized as necessary. A long oblique fracture of the left distal fibula was appreciated with a long posterior spike this was distracted and curettage of hematoma followed by saline flush, the fracture was reduced and temporarily stabilized with [id number] fracture reduction forceps followed by 2 interfrag screws perpendicular to the fracture these were [place] 3 mm screws with excellent bony apposition and compression noted next a anatomic fibular plate by Alida was utilized at the distal fibula with 3.5 mm locking screws with excellent apposition and contour without violating the ankle mortise. This was confirmed with AP oblique and lateral views the fibula was anatomically reduced out the length and the rotated without angular deformity and no hardware violating the lateral gutter. Intraoperatively the ankle was stressed with cotton hook test revealed intact syndesmosis. The incision was irrigated with copious amounts of sterile skin solution, intraoperative range of motion of the left ankle was smooth without crepitus and appreciated 10 degrees of dorsiflexion intraoperatively. The incision was then closed with periosteum reapproximated with 2-0 Vicryl, subcutaneous tissue with 3-0 Vicryl and skin with joie dressing then consisting of Xeroform sterile 4 x 4's and Kerlix were then applied followed by well-padded multilayer compressive posterior splint with stirrup. Tourniquet was then deflated and a prompt hyperemic response is noted to the distal digits of the left foot. Patient tolerated the procedure and anesthesia well and was transferred to the PACU with vital signs stable and vascular status intact. Following a period of postoperative monitoring patient will be discharged home without home care instructions and scheduled follow-up. Advised 81 mg aspirin to be taken once daily while she is nonambulatory to help potentially reduce risks of deep vein thrombosis. She was given at home care instructions and scheduled follow-up as well as myself number to contact with any postoperative questions or concerns.
[2024-08-11] MEDS: HYDROcodone-acetaminophen 10-325 mg Tablet 1 TAB PO (10:24)
--- NOTE | 2024-08-11 10:55 | ANE.PACU2 ---
Inpatient post-anesthesia follow up: Airway intact: Yes Vital signs: Temperature 97.7 F Pulse Rate 90 Respiratory Rate 16 Blood Pressure 115/75 Pulse Oximetry 94 Oxygen Delivery Me thod Room Air Oxygen Flow Rate Fraction of Inspir ed Oxygen Hydration adequate: Yes Nausea and vomiting: No Pain level: 1 Mental status: Baseline
== END 2024-08-11 10:50 | disposition home or self-care (01) ==
PROVIDERS: Student in an Organized Health Care Education/Training Program; PCP Registered Nurse; Visit Provider Podiatrist Foot & Ankle Surgery
PROC: (CPT 27792; principal; 2024-08-11 08:30)
DX: S82.832A Other fracture of upper and lower end of left fibula, initial encounter for closed fracture (principal); F32.A Depression, unspecified; F41.9 Anxiety disorder, unspecified; Z79.899 Other long term (current) drug therapy; X58.XXXA Exposure to other specified factors, initial encounter
CPT/HCPCS: 27792; 36415; 73590; 76000; 84703; C1713; J0131; J0690; J1100; J1885; J2250; J2405; J2704; J3010; J7030

== ENCOUNTER → 2024-08-26 10:51 | Outpatient (BNVA) | payer SELFPAY | PROVIDERS: PCP Registered Nurse; Visit Provider Podiatrist Foot & Ankle Surgery | DX: S82.832D Other fracture of upper and lower end of left fibula, subsequent encounter for closed fracture with routine healing (principal); Z98.890 Other specified postprocedural states; X58.XXXD Exposure to other specified factors, subsequent encounter | CPT/HCPCS: 73610 ==

== ENCOUNTER → 2024-09-23 14:13 | Outpatient (BNVA) | payer MEDICAID, SELFPAY | PROVIDERS: PCP Registered Nurse; Visit Provider Podiatrist Foot & Ankle Surgery | DX: Z98.890 Other specified postprocedural states (principal); Z87.81 Personal history of (healed) traumatic fracture | CPT/HCPCS: 73610 ==

== ENCOUNTER → 2024-10-21 13:58 | Outpatient (BNVA) | payer MEDICAID, SELFPAY | PROVIDERS: PCP Registered Nurse; Visit Provider Podiatrist Foot & Ankle Surgery | DX: Z98.890 Other specified postprocedural states (principal); Z87.81 Personal history of (healed) traumatic fracture | CPT/HCPCS: 73610 ==

== ENCOUNTER → 2025-03-24 10:14 | Outpatient (BNVA) | payer MEDICAID, SELFPAY | PROVIDERS: PCP Registered Nurse; Visit Provider Registered Nurse | DX: Z13.6 Encounter for screening for cardiovascular disorders (principal) | CPT/HCPCS: 80053; 80061; 85025 ==

== ENCOUNTER 2025-05-04 11:29 | Outpatient (CLI) | payer MEDICAID, SELFPAY ==
--- NOTE | 2025-05-04 11:20 | MM_ITS ---
WS: [id number] BILATERAL SCREENING DIGITAL TOMOSYNTHESIS MAMMOGRAM WITH CAD HISTORY: Z12.39 - Encounter for other screening for malignant neop... COMPARISON: 03/31/2024, 03/07/2023 Bilateral CC and MLO views with tomosynthesis and synthetic mammography submitted. Computer aided detection analyzed. Breast composition: There are scattered areas of fibroglandular density. No suspicious masses, microcalcifications or architectural distortion. MM/MM scr BI tomosynthesis [id number] IMPRESSION: BI-RADS: 1 - Negative. FOLLOW UP: 1 Year Follow-up
== END 2025-05-04 11:30 | disposition home or self-care (01) ==
LOC: MOBLMAM 11:30
PROVIDERS: PCP Registered Nurse; Visit Provider Registered Nurse
DX: Z12.31 Encounter for screening mammogram for malignant neoplasm of breast (principal); R92.323 Mammographic fibroglandular density, bilateral breasts; Z80.3 Family history of malignant neoplasm of breast
CPT/HCPCS: 77063; 77067